=== PATIENT | male | born 1990 | race Caucasian/White ===

== ENCOUNTER → 2023-06-06 | Emergency (ER) | payer BC ==
[~2023-06-06] MED LIST: D5 0.9 NS 1,000 ML IV ONE; ETOMIDATE 20 MG/10 ML VIAL IV ONE; KETOROLAC 30 MG/ML INJ ONE; LIDOCAINE 1% 20 ML MDV ONE; LORazepam 2 MG/ML VIAL ONE; MIDAZOLAM HCL IN 0.9 % NACL/PF 100 MG/100 ML BAG IVPB ONE; NA CHLORIDE 0.9% 2,000 ML ONE; ONDANSETRON 4 MG/2 ML VIAL ONE; ROCURONIUM 50 MG/5 ML VIAL IV ONE; TDAP (DIPHTH,PERTUSS(ACELL),TET VAC) 0.5 ML VIAL IMVAC ONE; WATER FOR INJ,STERILE 10 ML ONE; ZIPRASIDONE MESYLA 20 MG/VIAL IM ONE; propofoL 1,000 MG/100 ML VIAL IV ONE
[2023-06-06 05:23] LABS: Potassium 3.9 mEq/L (3.5-5.1)
[2023-06-06 05:54] LABS: Hematocrit 48.2 % (39.6-49.0); MCV 88.1 fL (80-100); MPV 7.6 fL (7.6-11.3); Platelets 342 thou/uL (152-406); RBC Red Blood Cell Count 5.48 M/uL (4.33-5.43)
[2023-06-06 06:02] LABS: Protime INR 1.05
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
--- NOTE | 2023-06-06 07:29 | RAD REPORT ---
EXAM DESCRIPTION: RAD - Chest Single View - 06/06/2023 6:50 am CLINICAL HISTORY: after intubation COMPARISON: Chest Single View dated 06/06/2023; Head C Spine Cap W Con dated 06/06/2023 FINDINGS: Lines: Endotracheal tube at the clavicular heads, approximately a cm above the aortic arch . Enteric tube below the diaphragm. Lungs: Hazy bilateral opacities with more consolidative findings in the left lung which are unchanged . Pleural: No significant pleural effusions or pneumothorax. Cardiac: Size likely accentuated by low lung volumes. Mediastinum: Within normal limits. Bones: No acute fractures. Other: None IMPRESSION: Endotracheal tube in satisfactory position. NG tube below the diaphragm in satisfactory position. Bilateral consolidative airspace disease which could reflect aspiration, pneumonia, or pneu monitis.
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
[2023-06-06 09:59] VITALS: TEMP 97.3
[2023-06-06 10:00] VITALS: BP 115/67; O2SAT 99
== END ==
LOC: SUPCPDRO 04:20 → ER 04:20
PROC: 0HQ4XZZ Repair Neck Skin, External Approach (ICD-10-PCS; principal; 2023-06-06)
DX: J96.00 Acute respiratory failure, unspecified whether with hypoxia or hypercapnia (principal); J81.0 Acute pulmonary edema; S11.91XA Laceration without foreign body of unspecified part of neck, initial encounter; S27.322A Contusion of lung, bilateral, initial encounter; F10.129 Alcohol abuse with intoxication, unspecified; V44.5XXA Car driver injured in collision with heavy transport vehicle or bus in traffic accident, initial encounter; Z91.018 Allergy to other foods
CPT/HCPCS: 85025; 80048; 36415; 86900; 86850; 85610; 86901; 84484; 70450; 72125; 71260; 74177; 71045 ×2; 82077; 94002; 12001; 31500; Q9967; J2704; J2250; J2001; J3486; J2405; J7042; J7030